=== PATIENT | male | born 2000 | race Caucasian/White ===

== ENCOUNTER 2022-02-23 02:30 | Emergency (ER) | payer MEDICAID ==
[~2022-02-23] VITALS: Ht 180.3 cm; Wt 95.3 kg
[2022-02-23 02:36] VITALS: BP 156/83
--- NOTE | 2022-02-23 02:43 | NUR ---
PT AMBULATORY TO BED 04 W STEADY GAIT.
--- NOTE | 2022-02-23 03:05 | NUR ---
PT TAKEN TO CT
[2022-02-23 04:30] VITALS: BP 150/69
--- NOTE | 2022-02-23 04:30 | NUR ---
Pt asleep in bed. No acute distress. Pt aroused. Pt states swelling on L eye getting worse. Pt states pain is still manageable. Provided comfort needs. Pending CT result
[2022-02-23] MEDS ORDERED: NAPR-1717 PO (05:24)
--- NOTE | 2022-02-23 05:27 | NUR ---
discharge by er md dr Rodriguez
== END 2022-02-23 05:27 | disposition home or self-care (01) ==
LOC: MED 02:30
DX: S60.221A Contusion of right hand, initial encounter (principal); H02.846 Edema of left eye, unspecified eyelid; Z79.1 Long term (current) use of non-steroidal anti-inflammatories (NSAID); Y04.0XXA Assault by unarmed brawl or fight, initial encounter; Y92.89 Other specified places as the place of occurrence of the external cause; Y93.89 Activity, other specified; Y99.8 Other external cause status
CPT/HCPCS: 70486; 73130; 99284; Q0092